=== PATIENT | male | born 1985 | race African-American/Black ===

== ENCOUNTER 2024-04-01 09:12 | Emergency (ER) | payer MEDICAID ==
[~2024-04-01] VITALS: Ht 188 cm; Wt 86.1 kg
[2024-04-01 09:39] VITALS: BP 140/86; TEMP 36.7
[2024-04-01] MEDS: PREDNISONE 20MG TABLET PO STA (09:42)
[2024-04-01] MEDS: IPRATROPIUM BROMIDE (0.02%) 0.5MG/2.5ML NEB HHN STA (09:44)
[2024-04-01 09:45] VITALS: PULSE 78; RESP 20; O2SAT 93
[2024-04-01] MEDS: ALBUTEROL (0.083%) 2.5MG/3ML NEB HHN STA (09:45)
[2024-04-01 10:43] LABS: INFLUENZA TYPE A Presumptive Negative (Pres. Neg.); INFLUENZA TYPE B Presumptive Negative (Pres. Neg.)
[2024-04-01] MEDS ORDERED: ALBU18HF2 IH (10:54)
[2024-04-01] MEDS ORDERED: P50 MT (10:54)
[2024-04-01 11:00] VITALS: PULSE 78; RESP 15; O2SAT 99
== END 2024-04-01 11:05 | disposition home or self-care (01) ==
LOC: ER 09:25
DX: J20.9 Acute bronchitis, unspecified (principal); F12.90 Cannabis use, unspecified, uncomplicated; Z20.822 Contact with and (suspected) exposure to COVID-19
CPT/HCPCS: 87804 ×2; 71045; 94644; 99285; 87426; J7512; Z7610; 94640; 94664

== ENCOUNTER 2024-08-05 08:33 | Emergency (ER) | payer MEDICAID ==
[~2024-08-05] VITALS: Ht 177.8 cm; Wt 78.0 kg
[~2024-08-05 08:33] MED LIST: ALBU18HF2 IH; P50 MT
[2024-08-05 08:38] VITALS: O2SAT 100
[2024-08-05] MEDS ORDERED: NAPR-681 MT (09:52)
[2024-08-05 09:57] VITALS: BP 114/77; PULSE 72; RESP 15; TEMP 36; O2SAT 100
== END 2024-08-05 10:04 | disposition home or self-care (01) ==
LOC: ER 08:33
DX: M70.22 Olecranon bursitis, left elbow (principal); Z79.899 Other long term (current) drug therapy; Z79.1 Long term (current) use of non-steroidal anti-inflammatories (NSAID); Y93.89 Activity, other specified
CPT/HCPCS: 73080; 99283